=== PATIENT | female | born 2000 | race Caucasian/White ===

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

== ENCOUNTER → 2020-08-29 12:20 | Outpatient (CLI) | payer BC, SELFPAY ==
[2020-08-29 13:44] LABS: Basophils # 0.1 K/mm3 (0-0.2); Basophils % 0.6 % (0.1-2.0); Eosinophils # 0.4 K/mm3 (0.0-0.4); Hematocrit 42.6 % (37.0-47.0); Hemoglobin 14.4 g/dL (12.2-16.2); Lymphocytes # 3.4 K/mm3 (0.7-4.5); Mean Corpuscular HGB Conc 33.8 g/dL (31.8-35.4); Mean Corpuscular Volume 88.9 fl (81-99); Mean Platelet Volume 7.6 fl (7.4-10.4); Monocytes # 0.8 K/mm3 (0.1-1.0); Monocytes % 6.3 % (1.7-9.3); Neutrophils # 7.6 K/mm3 (1.8-7.8); Neutrophils % 62.1 % (37.0-80.0); Platelet Count 370 K/mm3 (142-424); Red Blood Count 4.79 M/mm3 (4.20-5.40); Red Cell Distribution Width 13.4 % (11.5-17.5); White Blood Count 12.2 K/mm3 (4.8-10.8)
[2020-08-29 14:02] LABS: Strep Scrn Group A (Rapid) Negative (Negative)
[2020-08-30 11:35] LABS: Covid-19 Nasal PCR Sendout P&C Negative
== END ==
PROVIDERS: PCP Physician Assistant; Visit Provider Physician Assistant
DX: Z20.822 Contact with and (suspected) exposure to COVID-19 (principal); J02.9 Acute pharyngitis, unspecified
CPT/HCPCS: 85025; 87430; U0004

== ENCOUNTER 2021-01-21 09:09 | Emergency (ER) | payer BC, SELFPAY ==
[2021-01-21 09:10] VITALS: BP 117/73; PULSE 111; RESP 21; TEMP 37.3; O2SAT 96; BMI 37.3
[2021-01-21 09:29] LABS: UTC Strep Screen (Rapid) Positive (Negative)
[2021-01-21 09:31] VITALS: BP 117/73; PULSE 111; RESP 21; TEMP 37.3; O2SAT 96
--- NOTE | 2021-01-21 09:34 | HMH.EDUTC ---
[facility] [place] Disposition Clinical Impression: Strep throat Disposition: Home, Self-Care Condition on Discharge: Good Instructions: Strep Throat, DI for Strep Throat Additional Instructions: Drink plenty of fluids. Take tylenol or ibuprofen for pain or fever. Take the medications as directed. Follow up with your regular doctor. GO TO THE ER FOR ANY WORSENING SYMPTOMS Prescriptions: Brompheniramine/Pseudoephed/Dm [Bromfed Dm Cough Syrup] 5 ml PO Q6HP PRN #240 syrup PRN Reason: Cough Transmission Status: Received by [facility] Azithromycin [Z-Marco A 250mg Tab*] 250 mg PO UD DOSE PK #6 tab Transmission Status: Received by [facility] Referrals: Otis Polo MD [Primary Care Provider] - Forms: Work/School Release Time of Disposition: 09:35 Medical Decision Making - Medical Records Medical records reviewed: No: I reviewed the patient's medical records. - Henry Inquiry Pt receiving controlled substance: No Vital Signs: 01/21/21 09:10 01/21/21 09:31 Temperature 99.1 F 99.1 F Temperature Source Oral Pulse Rate 111 H Pulse Rate [Left Brachial] 111 H Respiratory Rate 21 21 Blood Pressure 117/73 Blood Pressure [Left Arm] 117/73 Blood Pressure Mean [Left Arm] 87 Blood Pressure Source [Left Arm] Automatic Cuff Blood Pressure Position [Left Arm] Sitting 02 Sat by Pulse Oximetry 96 Oxygen Delivery Method Room Air - Lab Data Lab results reviewed: Yes: I reviewed the patient's lab results. Lab Results 01/21/21 09:28: Strep Scn Rapid Clinic Positive A [facility] [place] HPI - General Stated complaint: sore throat Time Seen by Provider: 01/21/21 09:15 Mode of Arrival: Ambulatory Source of Information: Patient Limitations: No Limitations Description of Symptoms (Recalled from Triage Doc. by RN): PATIENT C/O SORE THROAT, FEVER, AND NASAL CONGESTION SINCE TUESDAY HEENT Symptoms (Recalled from RN notes): Yes Resp Symptoms (Recalled from RN notes): No Skin Symptoms (Recalled from RN notes): No MS Symptoms (Recalled from RN notes): No Functional Status (Recalled from RN notes): WNL - History of Present Illness Provider Complaint: She c/o sore throat for the past 2 days. She has had chilling and she has felt very bad also. - Related Data Home Medications Medication Instructions Recorded Confirmed Progesterone, Micronized 200 mg PO DAILY 01/21/21 01/21/21 [Progesterone] Previous Rx's Medication Instructions Recorded Azithromycin [Z-Marco A 250mg Tab*] 250 mg PO UD DOSE PK #6 tab 01/21/21 Brompheniramine/Pseudoephed/Dm 5 ml PO Q6HP PRN #240 syrup 01/21/21 [Bromfed Dm Cough Syrup] Allergies Allergy/AdvReac Type Severity Reaction Status Date / Time amoxicillin [From Augmentin] Allergy Verified 01/21/21 09:27 clavulanic acid Allergy Verified 01/21/21 09:27 [From Augmentin] - Worker's Comp Is this a Worker's Comp case?: No [facility] History - Hepatitis A Screen Drug use history?: No High risk sexual behaviors?: No History of sexually transmitted infection?: No Currently employed?: No Childcare worker?: No Do you have indoor plumbing?: Yes Do you have electricity?: Yes Attestation statement:: This patient has been screened for Hepatitis A risk factors. I have reviewed the patient's past medical history: Yes - Social History Alcohol Intake: never Occupational Status: other ROS Obtained: Yes All systems reviewed & no additional complaints - Constitutional Constitutional: Reports chills, Reports fever(s), Reports poor appetite, Reports malaise - Eyes Eyes: Denies eye discharge - ENT Ears, Nose, Mouth, and Throat: Reports as per HPI - Cardiovascular Cardiovascular: Denies chest pain - Respiratory Respiratory: Reports chest congestion, Reports cough, Denies dyspnea, Denies stridor, Denies wheezing Physical Exam - General General appearance: alert, in no apparent distress - Head Head exam: atraumatic, normoce
== END 2021-01-21 09:39 | disposition home or self-care (01) ==
PROVIDERS: Emergency Provider Nurse Practitioner Family; PCP Family Medicine
DX: J02.0 Streptococcal pharyngitis (principal)
CPT/HCPCS: 87880; 99202; G0463

== ENCOUNTER 2022-04-20 08:04 | Emergency (ER) | payer BC, SELFPAY ==
[2022-04-20 08:06] VITALS: BP 133/69; PULSE 68; RESP 18; TEMP 36.7; O2SAT 99; BMI 36.2
--- NOTE | 2022-04-20 08:29 | PC.NURSE ---
[id number] ED MD AT BEDSIDE
--- NOTE | 2022-04-20 08:33 | HMH.EDGENADL ---
Discharge Plan Disposition Patient Disposition: Home, Self-Care Prescriptions Prescriptions: New ketorolac 10 mg tablet 10 mg PO TID 5 Days Qty: 15 0RF tamsulosin [Flomax] 0.4 mg capsule 0.4 mg PO DAILY Qty: 7 0RF No Action progesterone micronized 200 MG capsule 200 mg PO DAILY azithromycin 250 MG tablet 250 mg PO UD DOSE PK Qty: 6 0RF Rx Instructions: Take two (2) tablets today, then one (1) tablet days #2 thru #5 [id number]-[id number]-[id number] 118 ML syrup 5 ml PO Q6HP PRN (Reason: Cough) Qty: 240 0RF Referrals Follow up/Referrals: Otis Polo MD [Primary Care Provider] - See instructions Activity Restrictions/Add. Instructions Additional Instructions/Restrictions: Please continue to take the antibiotic you were prescribed. Clinical Impressions Clinical Impression: Nephrolithiasis Instructions Patient Instructions: DI for Kidney Stones, DI for Urinary Tract Infection (UTI) Discharge ED Provider: Cody Guadalupe General Adult HPI General Chief complaint: Urogenital-Female Stated complaint: possible kidney stone Time Seen by Provider: 04/20/22 08:33 Mode of Arrival: Ambulatory Limitations: No Limitations Description of Symptoms (Recalled from ER Triage Doc. by RN): PT REPORTS KNOWN KIDNEY STONE 2MM, SEEN AT [facility] ON TUESDAY. CONTINUES TO HAVE LEFT FLANK PAIN, INTERMITTENT. DENIES FEVER OF CHILLS. History of Present Illness HPI narrative: Patient is a 21-year-old female with no pertinent past medical history who reports today with concern for continued flank pain. She says that she was diagnosed with a kidney stone on Tuesday morning. She says that she is continued to have left flank pain despite taking the pain medication. She denies any fever or chills. She says that her pain comes and goes and she intermittently has time periods where she does not have any pain at all. She denies any abdominal pain. Denies any nausea or vomiting. She says she has not had much of an appetite due to the pain. Related Data Home Medications Medication Instructions Recorded Confirmed progesterone micronized 200 mg 200 mg PO DAILY PERIODS 01/21/21 01/21/21 capsule Previous Rx's Medication Instructions Recorded azithromycin 250 mg tablet 250 mg PO UD DOSE PK #6 tabs 01/21/21 cgqphhlfxclotwl-ugcdtrmknunqtop-DN 5 ml PO Q6HP PRN Cough ##240 01/21/21 2 mg-30 mg-10 mg/5 mL oral syrup ketorolac 10 mg tablet 10 mg PO TID 5 days #15 tabs 04/20/22 tamsulosin 0.4 mg capsule (Flomax) 0.4 mg PO DAILY #7 caps 04/20/22 Allergies Allergy/AdvReac Type Severity Reaction Status Date / Time amoxicillin [From Augmentin] Allergy Verified 01/21/21 09:27 clavulanic acid Allergy Verified 01/21/21 09:27 [From Augmentin] [facility] Social History Smoking Status: Current every day smoker alcohol intake: never current occupational status: other Travel in the last 8 weeks: None ROS Obtained: Yes All systems reviewed & no additional complaints except as documented A 14 point review of system was performed and negative except per HPI Physical Exam General General appearance: alert and in no apparent distress Head Head exam: atraumatic, normocephalic and normal inspection Eye Eye exam: Present normal appearance, PERRL and EOMI ENT ENT exam: Present normal exam, normal oropharynx, mucous membranes moist, TM's normal bilaterally and normal external ear exam Neck Neck exam: Present normal inspection, full ROM and trachea midline; Absent meningismus or lymphadenopathy Chest Chest inspection: Present normal inspection and symmetric chest wall rise; Absent tenderness Respiratory Respiratory exam: Present normal lung sounds bilaterally; Absent respiratory distress Cardiovascular Cardiovascular exam: Present regular rate and normal rhythm; Absent JVD Abdominal Exam Abdominal exam: Present soft and normal bowel sounds; Absent distention, tenderness or guard
[2022-04-20 08:36] LABS: Microscopic, Urine URINE MICROSCOPIC (MICROSCOPIC)
[2022-04-20 08:38] LABS: Appearance,Urine CLOUDY (Clear); Bilirubin,Urine Negative (Negative); Blood, Urine 3+ (Negative); Color,Urine YELLOW (Yellow); Glucose,Urine (UA) Negative (Negative); Ketones,Urine Negative (Negative); Leukocyte Esterase,Urine Negative (Negative); Nitrate,Urine Negative (Negative); Protein,Urine Negative (Negative); Specific Gravity, Urine >= 1.030 (1.005-1.030)
[2022-04-20 08:50] LABS: Bacteria,Urine 1+ /lpf
[2022-04-20 09:10] LABS: Basophils % 0.5 % (0.1-2.0); Eosinophils # 0.2 K/mm3 (0.0-0.4); Eosinophils % 2.8 % (0.1-12.0); Hemoglobin 12.4 g/dL (12.2-16.2); Lymphocytes # 2.2 K/mm3 (0.7-4.5); Lymphocytes % 26.8 % (10-50); Mean Corpuscular HGB Conc 31.9 g/dL (31.8-35.4); Mean Corpuscular Hemoglobin 28.4 pg (27.0-31.2); Mean Corpuscular Volume 89.1 fl (81-99); Mean Platelet Volume 8.1 fl (7.4-10.4); Monocytes # 0.5 K/mm3 (0.1-1.0); Monocytes % 5.8 % (1.7-9.3); Neutrophils # 5.3 K/mm3 (1.8-7.8); Neutrophils % 64.1 % (37.0-80.0); Platelet Count 348 K/mm3 (142-424); Red Blood Count 4.38 M/mm3 (4.20-5.40); Red Cell Distribution Width 13.4 % (11.5-17.5); White Blood Count 8.2 K/mm3 (4.8-10.8)
[2022-04-20 09:13] LABS: Chloride 105 mmol/L (98-107); Potassium 3.5 mmoL/L (3.5-5.1); Sodium 141 mmol/L (136-145)
[2022-04-20 09:16] LABS: Anion Gap 14.5 mEq/L (5-15); Carbon Dioxide 25 mmol/L (22.0-30.0)
[2022-04-20 09:20] LABS: Blood Urea Nitrogen 18 mg/dl (7-17)
[2022-04-20 09:22] LABS: Calcium 9.7 mg/dl (8.4-10.2); Glucose 122 mg/dl (74-100)
--- NOTE | 2022-04-20 10:11 | PC.NURSE ---
WENDY ROUNDED ON PT NO NEEDS AT THIS TIME
[2022-04-20 10:14] LABS: Creatinine Clearance Estimated 172 mL/min (50-200); Estimated Glomerular Filt Rate 90 ml/min (>60); GFR (African American) 109 ML/MIN (>60)
--- NOTE | 2022-04-20 10:17 | PC.NURSE ---
ROUNDED ON PT AT THIS TIME, DENIES PAIN. NO NEEDS VOICED.
[2022-04-20 10:26] VITALS: BP 133/69; PULSE 62; RESP 16; TEMP 36.7; O2SAT 100
== END 2022-04-20 10:27 | disposition home or self-care (01) ==
PROVIDERS: Emergency Provider Student in an Organized Health Care Education/Training Program; PCP Family Medicine
DX: N20.0 Calculus of kidney (principal); R05.9 Cough, unspecified; F17.210 Nicotine dependence, cigarettes, uncomplicated; Z79.52 Long term (current) use of systemic steroids; Z88.0 Allergy status to penicillin; Z88.1 Allergy status to other antibiotic agents; Z88.3 Allergy status to other anti-infective agents; Z88.8 Allergy status to other drugs, medicaments and biological substances
CPT/HCPCS: 80048; 81001; 85025; 96361; 96374; 96375; 99284; J2405